=== PATIENT | female | born 1995 | race Caucasian/White ===

== ENCOUNTER 2022-02-22 19:50 | Inpatient (IN) ==
[2022-02-22] MEDS ORDERED: ONDANSETRON 4 MG/2 ML VIAL IV PRN (20:55)
[2022-02-22] MEDS ORDERED: METHYLERGONOVINE 0.2 MG/1 ML AMP IM PRN (20:55)
[2022-02-22] MEDS ORDERED: CARBOPROST TROMETHAMINE 250 MCG/ML AMP IM PRN (20:55)
[2022-02-22] MEDS ORDERED: OXYTOCIN/LR 20 UNIT/1,000 ML BAG IV ONE (20:55)
[2022-02-22] MEDS ORDERED: TRANEXAMIC ACID 1,000 MG in SODIUM CHLORIDE 0.9% 100 ML IV PRN (20:55)
[2022-02-22] MEDS ORDERED: miSOPROStoL 200 MCG TABLET RECTAL PRN (20:55)
[2022-02-22] MEDS ORDERED: LACTATED RINGERS 1,000 ML IV SCH (21:00)
[2022-02-22 21:13] LABS: Basophils % 0.1 % (0.0-0.8); Eosinophils % 0.4 % (0.00-10.9); Hemoglobin 7.2 GM/DL (12.0-16.0); Immature Granulocytes % 0.9 %; Immature Granulocytes Absolute 0.08 #; Lymphocytes # 2.5 10*3/uL (1.4-4.0); Lymphocytes % 26.9 % (21.3-54.2); Mean Corpuscular HGB Conc 28.8 GM/DL (32-36); Mean Corpuscular Volume 75.5 FL (87-102); Mean Platelet Volume 9.5 FL (9.6-12.0); Monocytes # 0.7 10*3/uL (0.11-0.8); Monocytes % 7.8 % (1.7-12.7); Neutrophils % 63.9 % (38.7-73.9); Platelet Count 194 T/CUMM (130-400); Red Blood Count 3.31 MC/CUMM (3.8-5.5); Red Cell Distribution Width 16.8 % (9.3-17.3); White Blood Count 9.3 T/CUMM (4-12)
[2022-02-22 21:30] LABS: Alanine Aminotransferase 13 U/L (13-56); Albumin 2.5 G/DL (3.4-5.0); Alkaline Phosphatase 184 U/L (45-117); Aspartate Amino Transferase 17 U/L (0-37); Bilirubin,Total < 0.39 MG/DL (0.20-1.00); Blood Urea Nitrogen 11 MG/DL (7-18); Calcium 8.6 MG/DL (8.5-10.1); Carbon Dioxide 21 MMOL/L (21-32); Chloride 112 MMOL/L (98-107); Glucose 105 MG/DL (74-106); Osmolality,Calculated 277.4 MOS/KG (273-304); Potassium 3.5 MMOL/L (3.5-5.1); Sodium 140 MMOL/L (136-145); Total Protein 6.8 G/DL (6.4-8.2)
[2022-02-22] MEDS ORDERED: INFLUENZA VIRUS VACCINE 0.5 ML SYRINGE IM ONE (21:30)
[2022-02-22 21:42] LABS: Hypochromia 1+; Lymphocytes 32 % (20-55); Microcytosis 1+; Platelet Estimate Adequate; Total Cells Counted 100
[2022-02-22] MEDS ORDERED: CITRIC ACID/SODIUM CITRATE 30 ML UDCUP PO ONE (21:42)
[2022-02-22] MEDS ORDERED: LACTATED RINGERS 1,000 ML IV PRN (21:42)
[2022-02-22] MEDS ORDERED: NALOXONE 0.4 MG/ML VIAL IV PRN (21:42)
[2022-02-22] MEDS ORDERED: diphenhydrAMINE 50 MG/1 ML VIAL IV PRN ×2 (21:42)
[2022-02-22] MEDS ORDERED: ONDANSETRON 4 MG/2 ML VIAL IV ONE (21:42)
[2022-02-22] MEDS ORDERED: PROMETHAZINE 25 MG/1 ML VIAL IM ONE (21:42)
[2022-02-22] MEDS ORDERED: FAMOTIDINE 20 MG/2 ML VIAL IV ONE (21:42)
[2022-02-22] MEDS ORDERED: hydrOXYzine HCL 25 MG/1 ML VIAL IM PRN (21:42)
[2022-02-22] MEDS ORDERED: ePHEDrine 50 MG/ML VIAL IV PRN (21:42)
[2022-02-22 21:43] LABS: Anisocytosis 1+; Macrocytosis 1+
[2022-02-22] MEDS ORDERED: fentaNYL 2 MCG/ROPIV 0.2% EPID 100 ML EPIDURAL SCH (22:00)
[2022-02-22] MEDS ORDERED: SODIUM CHLORIDE 0.9% 1,000 ML IV PRN (22:03)
[2022-02-23 07:00] LABS: Hematocrit 28.1 VOL% (35.7-47.0); Hemoglobin 8.2 GM/DL (12.0-16.0)
[2022-02-23] MEDS ORDERED: OXYTOCIN/LR 20 UNIT/1,000 ML BAG IV SCH (07:45)
[2022-02-23] MEDS ORDERED: diphenhydrAMINE 50 MG/1 ML VIAL IV PRN ×2 (09:08)
[2022-02-23] MEDS ORDERED: ePHEDrine 50 MG/ML VIAL IV PRN (09:08)
[2022-02-23] MEDS ORDERED: NALOXONE 0.4 MG/ML VIAL IV PRN (09:08)
[2022-02-23] MEDS ORDERED: LACTATED RINGERS 1,000 ML IV ONE (09:08)
[2022-02-23] MEDS ORDERED: ONDANSETRON 4 MG/2 ML VIAL IV ONE (09:08)
[2022-02-23] MEDS ORDERED: PROMETHAZINE 25 MG/1 ML VIAL IM ONE (09:08)
[2022-02-23] MEDS ORDERED: hydrOXYzine HCL 25 MG/1 ML VIAL IM PRN (09:08)
[2022-02-23] MEDS ORDERED: CITRIC ACID/SODIUM CITRATE 30 ML UDCUP PO ONE (09:08)
[2022-02-23] MEDS ORDERED: FAMOTIDINE 20 MG/2 ML VIAL IV ONE (09:08)
[2022-02-23] MEDS ORDERED: fentaNYL 2 MCG/ROPIV 0.2% EPID 100 ML EPIDURAL SCH (09:30)
[2022-02-23 12:39] LABS: Bilirubin,Urine Negative (Negative); Blood, Urine Negative (Negative); Glucose,Urine (UA) Negative (Negative); Ketones,Urine Negative (Negative); Nitrite,Urine Negative (Negative); Protein,Urine Negative (Negative); Squamous Epithelial Cell,Urine Occasional /HPF (0-10); Urine Appearance CLEAR (Clear); Urine Color Straw (Yellow); Urine Specific Gravity 1.005 (1.001-1.035); Urine Urobilinogen < 2.0 eU/dL (<2.0)
[2022-02-23] MEDS ORDERED: miSOPROStoL 200 MCG TABLET ONE (13:16)
[2022-02-23] MEDS ORDERED: METHYLERGONOVINE 0.2 MG/1 ML AMP ONE (13:17)
[2022-02-23] MEDS ORDERED: CARBOPROST TROMETHAMINE 250 MCG/ML AMP IM ONE (13:17)
[2022-02-23 14:14] LABS: Cord Venous Blood HCO3 21.6 MMOL/L; Cord Venous Blood PCO2 44.2 MMHG; Cord Venous Blood PO2 27.5
[2022-02-23] MEDS ORDERED: oxyCODONE/ACETAMINOPHEN 5-325 MG TABLET PO PRN ×2 (17:05)
[2022-02-23] MEDS ORDERED: DIPH/TET/ACEL PERT BOOSTER VACCINE 0.5 ML VIAL IM ONE (17:05)
[2022-02-23] MEDS ORDERED: OXYTOCIN/LR 20 UNIT/1,000 ML BAG IV ONE (17:05)
[2022-02-23] MEDS ORDERED: RHO(D) IMMUNE GLOBULIN 300 MCG SYRINGE IM ONE (17:05)
[2022-02-23] MEDS ORDERED: ACETAMINOPHEN 325 MG TABLET PO PRN (17:05)
[2022-02-23] MEDS ORDERED: BISACODYL 10 MG SUPP RECTAL PRN (17:05)
[2022-02-23] MEDS ORDERED: MEASLES/MUMPS/RUBELLA VACCINE 0.5 ML VIAL SUBCUT ONE (17:05)
[2022-02-23] MEDS ORDERED: HYDROCORTISONE 2.5% RECTAL CREAM 30 GM TUBE TOP PRN (17:05)
[2022-02-23] MEDS ORDERED: WITCH HAZEL PADS 100/JAR TOP PRN (17:05)
[2022-02-23] MEDS ORDERED: BENZOCAINE 20%/MENTHOL 0.5% SPRAY 56 GM CAN TOP PRN (17:05)
[2022-02-23] MEDS ORDERED: LANOLIN 50% CREAM 0.3 OZ TUBE TOP PRN (17:05)
[2022-02-23] MEDS: IBUPROFEN 800 MG TABLET PO PRN (19:49)
[2022-02-23] MEDS: DOCUSATE SODIUM 100 MG CAPSULE PO SCH (21:05)
[2022-02-24] MEDS: IBUPROFEN 800 MG TABLET PO PRN ×2 (05:08→12:16)
[2022-02-24 06:15] LABS: Basophils % 0.3 % (0.0-0.8); Eosinophils # 0.1 10*3/uL (0.0-0.87); Eosinophils % 0.5 % (0.00-10.9); Hematocrit 30.6 VOL% (35.7-47.0); Hemoglobin 8.9 GM/DL (12.0-16.0); Immature Granulocytes % 0.5 %; Immature Granulocytes Absolute 0.05 #; Lymphocytes # 2.9 10*3/uL (1.4-4.0); Lymphocytes % 26.6 % (21.3-54.2); Mean Corpuscular HGB Conc 29.1 GM/DL (32-36); Mean Corpuscular Volume 75.6 FL (87-102); Mean Platelet Volume 9.5 FL (9.6-12.0); Monocytes # 0.7 10*3/uL (0.11-0.8); Monocytes % 6.5 % (1.7-12.7); Neutrophils % 65.6 % (38.7-73.9); Platelet Count 191 T/CUMM (130-400); Red Blood Count 4.05 MC/CUMM (3.8-5.5); Red Cell Distribution Width 17.6 % (9.3-17.3); White Blood Count 10.9 T/CUMM (4-12)
[2022-02-24] MEDS: DOCUSATE SODIUM 100 MG CAPSULE PO SCH ×2 (08:54→21:34)
[2022-02-24] MEDS: FERROUS SULFATE 325 MG TABLET PO SCH ×2 (08:54→21:34)
[2022-02-25] MEDS: IBUPROFEN 800 MG TABLET PO PRN (00:15)
[2022-02-25 09:35] VITALS: BP 100/55
[2022-02-25] MEDS: FERROUS SULFATE 325 MG TABLET PO SCH (09:45)
[2022-02-25] MEDS: DOCUSATE SODIUM 100 MG CAPSULE PO SCH (09:45)
[2022-02-25] MEDS ORDERED: INFLUENZA VIRUS VACCINE 0.5 ML SYRINGE IM ONE (11:40)
== END 2022-02-25 12:50 | disposition home or self-care (01) | DRG 807 ==
LOC: N.LDOUT 19:50 → N.LD 19:51 → N.OB 02-23 17:04
PROVIDERS: ADMIT Obstetrics & Gynecology; ATTEND Obstetrics & Gynecology